=== PATIENT | male | born 1945 | race Caucasian/White ===

== ENCOUNTER 2018-04-03 08:25 | Inpatient (IN) | payer MEDICARE, BC ==
[~2018-04-03] VITALS: Ht 177.8 cm; Wt 81.8 kg
[~2018-04-03 08:25] MED LIST: ATOR10TA70 PO; BECL8.7H BOTHNARES; BUDE10.2 IH; GEMF600T3 PO; GLIM2TAB2 PO; LISI10TA4 PO; MESA1.2T PO; METF500T7 PO; NITR0.4T SL; TICA90TA PO
[2018-04-03 09:07] LABS: BASOPHILS % (AUTO) 0 % (0-1); EOSINOPHILS % (AUTO) 0.2 % (0-6); HEMATOCRIT 41.1 % (42.0-52.0); HEMOGLOBIN 13.6 g/dl (14.0-17.9); LYMPHOCYTES # (AUTO) 0.8 X10'3 (1.1-4.8); LYMPHOCYTES % (AUTO) 8.6 % (21-51); MEAN CORPUSCULAR HEMOGLOBIN 27.2 PG (27.0-31.0); MEAN CORPUSCULAR HGB CONC 33.2 % (33.0-36.5); MEAN PLATELET VOLUME 8.1 FL (7.4-10.4); MONOCYTES # (AUTO) 0.8 X10'3 (0-0.9); MONOCYTES % (AUTO) 9.3 % (2-12); NEUTROPHILS # (AUTO) 7.5 X10'3 (1.8-7.7); NEUTROPHILS % (AUTO) 81.9 % (42-75); PLATELET COUNT 383 X10'3 (140-440); RED BLOOD COUNT 5.02 X10'6 (4.70-6.10); RED CELL DISTRIBUTION WIDTH 18.3 % (11.5-14.5); WHITE BLOOD COUNT 9.1 X10'3 (4.5-11.0)
[2018-04-03 09:17] LABS: INR 1.1 INR; PARTIAL THROMBOPLASTIN TIME 33 SECONDS (22-32); PROTHROMBIN TIME 11.2 SECONDS (9.0-12.0)
[2018-04-03 09:22] LABS: ALANINE AMINOTRANSFERASE 24 U/L (12-78); ALBUMIN 2.7 G/DL (3.4-5.0); ALBUMIN/GLOBULIN RATIO 0.4 (1.1-1.5); ALKALINE PHOSPHATASE 105 IU/L (46-116); ANION GAP 14 (8-16); ASPARTATE AMINO TRANSFERASE 32 U/L (10-37); BILIRUBIN,TOTAL 0.7 MG/DL (0.1-1.0); BLOOD UREA NITROGEN 44 MG/DL (7-18); BUN/CREATININE RATIO 21.4 (5.4-32.0); CALCIUM 9.1 MG/DL (8.5-10.1); CHLORIDE 95 MMOL/L (99-107); CREATININE 2.06 MG/DL (0.60-1.10); GLUCOSE 179 MG/DL (70-104); POTASSIUM 3.9 MMOL/L (3.5-5.1); SODIUM 131 MMOL/L (135-145); TOTAL CARBON DIOXIDE 21.8 MMOL/L (24-32); TOTAL PROTEIN 8.9 G/DL (6.4-8.2); eGFR 32 ML/MIN
[2018-04-03 09:26] LABS: TOTAL CELLS COUNTED 100
[2018-04-03 09:27] LABS: ANISOCYTOSIS 2+; PLATELET ESTIMATE NORMAL; TOXIC GRANULATION 1+; TOXIC VACUOLATION 1+
[2018-04-03] MEDS ORDERED: aspirin 81mg tab.chew PO ONE (09:55)
[2018-04-03] MEDS ORDERED: normal saline 1000ML IV soln IVB ONE (10:10)
[2018-04-03] MEDS ORDERED: ASPI-1053 PO (10:28)
[2018-04-03] MEDS ORDERED: CHLO25TA2 PO (10:28)
[2018-04-03] MEDS ORDERED: LOSA25TA96 PO (10:28)
[2018-04-03] MEDS ORDERED: EMPA10TA PO (10:28)
[2018-04-03] MEDS ORDERED: METO-539 PO (10:28)
[2018-04-03] MEDS ORDERED: GABA-532 PO (10:28)
[2018-04-03] MEDS ORDERED: SITA25TA3 PO (10:28)
[2018-04-03] MEDS ORDERED: MESA10002 RC (10:28)
[2018-04-03] MEDS ORDERED: ADAL40PE SUBCUT (10:28)
[2018-04-03] MEDS ORDERED: MERC50TA2 PO (10:28)
[2018-04-03] MEDS ORDERED: OMEP20TA5 PO (10:28)
[2018-04-03] MEDS ORDERED: METF500T PO (10:28)
[2018-04-03] MEDS ORDERED: potassium Cl 20 mEq SR tablet PO PRN ×2 (10:45)
[2018-04-03] MEDS ORDERED: HYDROcodone/acetaminophen 5mg/325mg tablet PO PRN (10:45)
[2018-04-03] MEDS ORDERED: potassium Cl 40MEQ/NS 500ml 500 ML IV PRN ×2 (10:45)
[2018-04-03] MEDS ORDERED: magnesium hydroxide 30ml (MOM) UD suspension PO PRN (10:45)
[2018-04-03] MEDS ORDERED: morphine 4 MG/ML inj SYRINge IV PRN ×2 (10:45)
[2018-04-03] MEDS ORDERED: magnesium Cl slow-release 64mg tablet PO PRN (10:45)
[2018-04-03] MEDS ORDERED: mag hydrox/Alum hydrox/simeth 30ml oral suspension PO PRN (10:45)
[2018-04-03] MEDS ORDERED: acetaminophen 325mg tablet PO PRN ×2 (10:45)
[2018-04-03] MEDS ORDERED: magnesium/D5W IVPB 50 ML IV PRN (10:45)
[2018-04-03] MEDS ORDERED: magnesium 4gm in 100ml NS 100 ML IV PRN (10:45)
[2018-04-03] MEDS ORDERED: ondansetron/PF 4mg/2ml inj IV PRN (10:45)
[2018-04-03] MEDS ORDERED: HYDROcodone/acetaminophen 10/325mg tab PO PRN (10:45)
[2018-04-03] MEDS: normal saline 1000ml 1,000 ML IV SCH (11:05)
[2018-04-03] MEDS ORDERED: dextrose 50%-water 50ml dispensing syringe IV PRN ×2 (11:20)
[2018-04-03] MEDS ORDERED: dextrose ORAL solution 15 GM/59 ML bottle PO PRN (11:20)
[2018-04-03] MEDS ORDERED: MESSAGE TO PHARMACY PO ONE (11:20)
[2018-04-03] MEDS ORDERED: glucagon, human recombinant 1mg kit SUBCUT PRN (11:20)
[2018-04-03 13:06] LABS: HEMOGLOBIN A1C 6.5 % (4.5-6.2)
[2018-04-03 13:40] VITALS: BP 147/85
[2018-04-03 13:58] LABS: D-DIMER 5.84 MG/L FEU (0-0.50)
[2018-04-03] MEDS ORDERED: enoxaparin 40mg/0.4ml syringe SUBCUT ONE (14:50)
[2018-04-03] MEDS ORDERED: heparin 10,000 units/1 ML INJ IV ONE ×2 (17:10→17:15)
[2018-04-03] MEDS ORDERED: heparin 10,000 units/1 ML INJ IV PRN ×2 (17:10→17:15)
[2018-04-03] MEDS ORDERED: FLUSH ICATH ONE (17:30)
[2018-04-03] MEDS ORDERED: TPA CATHFLO ICATH ONE (17:30)
[2018-04-03] MEDS ORDERED: NORMAL SALINE ICATH ONE (17:30)
[2018-04-03] MEDS: albuterol 2.5 MG/3 ML nebule NEB SCH ×3 (17:43→23:35)
[2018-04-03] MEDS ORDERED: NORMAL SALINE IV ONE (18:00)
[2018-04-03] MEDS ORDERED: ALTEPLASE IV ONE (18:00)
[2018-04-03 19:00] VITALS: BP 147/85
[2018-04-03] MEDS: metoprolol tartrate 50mg tablet PO SCH (19:27)
[2018-04-03 20:00] VITALS: BP_SYST 116; BP_SYST 119; BP_DIAS 54; BP_DIAS 57
[2018-04-03] MEDS: methylPREDNISolone sod succ/PF 40mg inj. IV SCH (20:08)
[2018-04-03 21:00] VITALS: BP 119/54
[2018-04-03] MEDS: insulin glargine (Lantus) pen - multi-dose SQ SCH (21:00)
[2018-04-03] MEDS ORDERED: temazepam 15mg capsule PO PRN (21:00)
[2018-04-03 21:29] LABS: CHOL/HDL RATIO 12.7 (0.00-4.99); CHOLESTEROL 127 MG/DL (0-200); HDL CHOLESTEROL 10 MG/DL (35-60); LDL CHOLESTEROL 71 MG/DL (50-100); TRIGLYCERIDES 219 MG/DL (20-135)
[2018-04-03 22:00] VITALS: BP 111/70
[2018-04-03] MEDS: levoFLOXACIN-Levaquin 500mg/D5 100 ML IV SCH (22:59)
[2018-04-03 23:00] VITALS: BP 126/82
[2018-04-03] MEDS: ipratropium/albuterol 3ml nebule NEB SCH (23:35)
[2018-04-04] VITALS (23 sets, daily range): BP systolic 105–144; BP diastolic 51–79
[2018-04-04] MEDS: azithromycin/NS 500mg/250ml 250 ML IV SCH ×2 (00:13→07:40)
[2018-04-04] MEDS: normal saline 1000ml 1,000 ML IV SCH ×2 (01:37→12:11)
[2018-04-04] MEDS: ipratropium/albuterol 3ml nebule NEB SCH ×6 (03:43→23:00)
[2018-04-04] MEDS: albuterol 2.5 MG/3 ML nebule NEB SCH ×5 (03:44→23:58)
[2018-04-04 05:39] LABS: BASOPHILS % (AUTO) 0 % (0-1); EOSINOPHILS % (AUTO) 0.4 % (0-6); HEMOGLOBIN 12.6 g/dl (14.0-17.9); LYMPHOCYTES # (AUTO) 0.3 X10'3 (1.1-4.8); LYMPHOCYTES % (AUTO) 4.1 % (21-51); MEAN CORPUSCULAR HEMOGLOBIN 26.9 PG (27.0-31.0); MEAN CORPUSCULAR HGB CONC 32.3 % (33.0-36.5); MEAN CORPUSCULAR VOLUME 83.3 FL (78-98); MEAN PLATELET VOLUME 8.4 FL (7.4-10.4); MONOCYTES # (AUTO) 0.5 X10'3 (0-0.9); MONOCYTES % (AUTO) 7.4 % (2-12); NEUTROPHILS # (AUTO) 5.9 X10'3 (1.8-7.7); NEUTROPHILS % (AUTO) 88.1 % (42-75); PLATELET COUNT 340 X10'3 (140-440); RED BLOOD COUNT 4.69 X10'6 (4.70-6.10); RED CELL DISTRIBUTION WIDTH 18.5 % (11.5-14.5); WHITE BLOOD COUNT 6.7 X10'3 (4.5-11.0)
[2018-04-04 06:09] LABS: ALANINE AMINOTRANSFERASE 27 U/L (12-78); ALBUMIN 2.3 G/DL (3.4-5.0); ALBUMIN/GLOBULIN RATIO 0.4 (1.1-1.5); ALKALINE PHOSPHATASE 100 IU/L (46-116); ANION GAP 13 (8-16); ASPARTATE AMINO TRANSFERASE 33 U/L (10-37); BILIRUBIN,TOTAL 0.5 MG/DL (0.1-1.0); BLOOD UREA NITROGEN 36 MG/DL (7-18); CALCIUM 9.1 MG/DL (8.5-10.1); CHLORIDE 99 MMOL/L (99-107); CREATININE 1.44 MG/DL (0.60-1.10); GLUCOSE 197 MG/DL (70-104); MAGNESIUM 2.1 MG/DL (1.5-2.4); POTASSIUM 3.8 MMOL/L (3.5-5.1); SODIUM 136 MMOL/L (135-145); TOTAL CARBON DIOXIDE 23.6 MMOL/L (24-32); TOTAL PROTEIN 8.1 G/DL (6.4-8.2); eGFR 48 ML/MIN
[2018-04-04] MEDS: metoprolol tartrate 50mg tablet PO SCH ×2 (07:40→19:19)
[2018-04-04] MEDS: losartan 50mg tablet PO SCH (07:40)
[2018-04-04] MEDS: atorvastatin 10mg tablet PO SCH (07:40)
[2018-04-04] MEDS: methylPREDNISolone sod succ/PF 40mg inj. IV SCH ×2 (07:40→19:21)
[2018-04-04] MEDS: pantoprazole 40mg Tablet.DR PO SCH (07:40)
[2018-04-04] MEDS ORDERED: enoxaparin 80mg/0.8ml syringe SUBCUT SCH (08:00)
[2018-04-04] MEDS ORDERED: enoxaparin 40mg/0.4ml syringe SUBCUT SCH (08:00)
[2018-04-04] MEDS ORDERED: levoFLOXACIN 250mg tablet PO SCH (08:00)
[2018-04-04] MEDS: K and/or MAG REPLACEMENT MC SCH (08:00)
[2018-04-04] MEDS ORDERED: apixaban 5mg tablet PO SCH (08:10)
[2018-04-04] MEDS: levoFLOXACIN-Levaquin 500mg/D5 100 ML IV SCH (09:43)
[2018-04-04] MEDS: apixaban 5mg tablet PO SCH ×2 (10:53→19:21)
[2018-04-04] MEDS: guaiFENesin/DM oral syrup 5 ML CUP PO PRN ×3 (11:37→20:08)
[2018-04-04] MEDS: CefTRIAXone/D5W-Rocephin 1gm 50 ML IV SCH (12:12)
[2018-04-04] MEDS: insulin Lispro (HumaLOG) vial - multi-dose SQ SCH ×3 (13:53→21:58)
[2018-04-04] MEDS: lactobacillus rhamnosus 10,000 MMU CELLS/CAPSULE PO SCH (19:19)
[2018-04-04] MEDS: gabapentin 300mg capsule PO SCH (20:10)
[2018-04-04] MEDS: insulin glargine (Lantus) pen - multi-dose SQ SCH (22:00)
[2018-04-04] MEDS: benzonatate 100mg capsule PO PRN (23:15)
[2018-04-05] VITALS (18 sets, daily range): BP systolic 105–150; BP diastolic 51–97
[2018-04-05] MEDS: guaiFENesin/DM oral syrup 5 ML CUP PO PRN (01:09)
[2018-04-05] MEDS: normal saline 1000ml 1,000 ML IV SCH ×2 (01:24→15:15)
[2018-04-05] MEDS: ipratropium/albuterol 3ml nebule NEB SCH ×6 (02:45→23:31)
[2018-04-05] MEDS: codeine/proMETHazine 5ml UD syrup PO PRN ×3 (02:45→18:41)
[2018-04-05] MEDS: albuterol 2.5 MG/3 ML nebule NEB SCH ×2 (04:00→08:00)
[2018-04-05 05:54] LABS: BASOPHILS % (AUTO) 0 % (0-1); EOSINOPHILS % (AUTO) 0.3 % (0-6); HEMATOCRIT 37.6 % (42.0-52.0); HEMOGLOBIN 12.2 g/dl (14.0-17.9); LYMPHOCYTES # (AUTO) 0.4 X10'3 (1.1-4.8); LYMPHOCYTES % (AUTO) 4.9 % (21-51); MEAN CORPUSCULAR HEMOGLOBIN 27.2 PG (27.0-31.0); MEAN CORPUSCULAR HGB CONC 32.4 % (33.0-36.5); MEAN PLATELET VOLUME 8.6 FL (7.4-10.4); MONOCYTES # (AUTO) 0.4 X10'3 (0-0.9); MONOCYTES % (AUTO) 6.1 % (2-12); NEUTROPHILS # (AUTO) 6.3 X10'3 (1.8-7.7); NEUTROPHILS % (AUTO) 88.7 % (42-75); PLATELET COUNT 392 X10'3 (140-440); RED BLOOD COUNT 4.47 X10'6 (4.70-6.10); RED CELL DISTRIBUTION WIDTH 18.9 % (11.5-14.5); WHITE BLOOD COUNT 7.2 X10'3 (4.5-11.0)
[2018-04-05 06:13] LABS: ALANINE AMINOTRANSFERASE 43 U/L (12-78); ALBUMIN 2.2 G/DL (3.4-5.0); ALBUMIN/GLOBULIN RATIO 0.4 (1.1-1.5); ALKALINE PHOSPHATASE 100 IU/L (46-116); ANION GAP 9 (8-16); ASPARTATE AMINO TRANSFERASE 68 U/L (10-37); BILIRUBIN,TOTAL 0.3 MG/DL (0.1-1.0); BLOOD UREA NITROGEN 43 MG/DL (7-18); BUN/CREATININE RATIO 32.6 (5.4-32.0); CALCIUM 8.8 MG/DL (8.5-10.1); CHLORIDE 102 MMOL/L (99-107); CREATININE 1.32 MG/DL (0.60-1.10); GLUCOSE 219 MG/DL (70-104); MAGNESIUM 2.3 MG/DL (1.5-2.4); SODIUM 137 MMOL/L (135-145); TOTAL CARBON DIOXIDE 25.8 MMOL/L (24-32); TOTAL PROTEIN 7.7 G/DL (6.4-8.2); eGFR 53 ML/MIN
[2018-04-05 06:14] LABS: POTASSIUM 4.6 MMOL/L (3.5-5.1)
[2018-04-05] MEDS: CefTRIAXone/D5W-Rocephin 1gm 50 ML IV SCH (07:48)
[2018-04-05] MEDS: atorvastatin 10mg tablet PO SCH (07:50)
[2018-04-05] MEDS: lactobacillus rhamnosus 10,000 MMU CELLS/CAPSULE PO SCH ×2 (07:50→20:03)
[2018-04-05] MEDS: pantoprazole 40mg Tablet.DR PO SCH (07:51)
[2018-04-05] MEDS: gabapentin 300mg capsule PO SCH ×3 (07:51→20:03)
[2018-04-05] MEDS: metoprolol tartrate 50mg tablet PO SCH ×2 (07:51→20:04)
[2018-04-05] MEDS: apixaban 5mg tablet PO SCH ×2 (07:51→20:03)
[2018-04-05] MEDS: losartan 50mg tablet PO SCH (07:51)
[2018-04-05] MEDS: methylPREDNISolone sod succ/PF 40mg inj. IV SCH ×2 (07:51→20:03)
[2018-04-05] MEDS: K and/or MAG REPLACEMENT MC SCH (08:00)
[2018-04-05] MEDS: azithromycin/NS 500mg/250ml 250 ML IV SCH (08:47)
[2018-04-05] MEDS: insulin Lispro (HumaLOG) vial - multi-dose SQ SCH ×3 (08:50→18:44)
[2018-04-05] MEDS: benzonatate 100mg capsule PO PRN ×2 (10:34→20:03)
[2018-04-05] MEDS: insulin glargine (Lantus) pen - multi-dose SQ SCH (21:13)
[2018-04-05 22:34] LABS: CLARITY,URINE CLEAR (Clear); COLOR,URINE YELLOW (Yellow); GLUCOSE, URINE >=1000 mg/dl (Neg); KETONES,URINE NEGATIVE (Neg); LEUKOCYTE ESTERASE ,URINE NEGATIVE (Neg); NITRITES, URINE NEGATIVE (Neg); OCCULT BLOOD,URINE TRACE-INTACT (Neg); PH,URINE 5.5 (4.8-8.0); PROTEIN,URINE 30 mg/dl (Neg); UROBILINOGEN,URINE 0.2 E.U/dL (0.2-1.0)
[2018-04-05 22:44] LABS: UA COLLECTION TYPE CLN CATCH MIDSTREAM
[2018-04-05 23:02] LABS: BACTERIA,URINE NONE SEEN /HPF (Neg); MUCUS STRANDS NONE SEEN /LPF (Neg); RBC,URINE 0-2 /HPF (0-2); SQUAMOUS EPITHELIAL CELL,UR NONE SEEN /LPF (FEW); WBC,URINE NONE SEEN /HPF (0-4)
[2018-04-05 23:37] LABS: UA EOSINOPHILS NO EOS /HPF
[2018-04-06 03:00] VITALS: BP 146/68
[2018-04-06] MEDS: ipratropium/albuterol 3ml nebule NEB SCH ×5 (03:20→15:00)
[2018-04-06 06:00] VITALS: BP 144/67
[2018-04-06 06:15] LABS: BASOPHILS % (AUTO) 0 % (0-1); EOSINOPHILS % (AUTO) 0.4 % (0-6); HEMOGLOBIN 12.6 g/dl (14.0-17.9); LYMPHOCYTES # (AUTO) 0.7 X10'3 (1.1-4.8); MEAN CORPUSCULAR HEMOGLOBIN 27.2 PG (27.0-31.0); MEAN CORPUSCULAR HGB CONC 32.4 % (33.0-36.5); MONOCYTES # (AUTO) 0.7 X10'3 (0-0.9); MONOCYTES % (AUTO) 6.1 % (2-12); NEUTROPHILS # (AUTO) 9.2 X10'3 (1.8-7.7); NEUTROPHILS % (AUTO) 86.5 % (42-75); PLATELET COUNT 418 X10'3 (140-440); RED BLOOD COUNT 4.64 X10'6 (4.70-6.10); RED CELL DISTRIBUTION WIDTH 18.8 % (11.5-14.5); WHITE BLOOD COUNT 10.6 X10'3 (4.5-11.0)
[2018-04-06 06:35] LABS: ALANINE AMINOTRANSFERASE 69 U/L (12-78); ALBUMIN 2.3 G/DL (3.4-5.0); ALBUMIN/GLOBULIN RATIO 0.5 (1.1-1.5); ALKALINE PHOSPHATASE 117 IU/L (46-116); ANION GAP 9 (8-16); ASPARTATE AMINO TRANSFERASE 49 U/L (10-37); BILIRUBIN,TOTAL 0.3 MG/DL (0.1-1.0); BLOOD UREA NITROGEN 34 MG/DL (7-18); BUN/CREATININE RATIO 27.2 (5.4-32.0); CALCIUM 9.1 MG/DL (8.5-10.1); CHLORIDE 103 MMOL/L (99-107); CREATININE 1.25 MG/DL (0.60-1.10); GLUCOSE 203 MG/DL (70-104); POTASSIUM 4.3 MMOL/L (3.5-5.1); SODIUM 138 MMOL/L (135-145); TOTAL CARBON DIOXIDE 26.2 MMOL/L (24-32); TOTAL PROTEIN 7.4 G/DL (6.4-8.2); eGFR 56 ML/MIN
[2018-04-06] MEDS: pantoprazole 40mg Tablet.DR PO SCH (07:30)
[2018-04-06] MEDS: K and/or MAG REPLACEMENT MC SCH (08:00)
[2018-04-06] MEDS: insulin Lispro (HumaLOG) vial - multi-dose SQ SCH ×3 (08:21→20:02)
[2018-04-06] MEDS: gabapentin 300mg capsule PO SCH ×3 (08:22→22:05)
[2018-04-06] MEDS: lactobacillus rhamnosus 10,000 MMU CELLS/CAPSULE PO SCH ×2 (08:22→19:53)
[2018-04-06] MEDS: azithromycin/NS 500mg/250ml 250 ML IV SCH (08:22)
[2018-04-06] MEDS: metoprolol tartrate 50mg tablet PO SCH ×2 (08:23→19:53)
[2018-04-06] MEDS: losartan 50mg tablet PO SCH (08:23)
[2018-04-06] MEDS: methylPREDNISolone sod succ/PF 40mg inj. IV SCH ×2 (08:23→19:53)
[2018-04-06] MEDS: atorvastatin 10mg tablet PO SCH (08:23)
[2018-04-06] MEDS: apixaban 5mg tablet PO SCH ×2 (08:23→19:53)
[2018-04-06] MEDS: CefTRIAXone/D5W-Rocephin 1gm 50 ML IV SCH (08:31)
[2018-04-06] MEDS: normal saline 1000ml 1,000 ML IV SCH ×2 (08:33→19:41)
[2018-04-06 11:00] VITALS: BP 135/96
[2018-04-06] MEDS ORDERED: ipratropium/albuterol 3ml nebule NEB PRN (13:25)
[2018-04-06] MEDS ORDERED: ceftazidime 1000mg in D5W 50ml 50 ML IV SCH (14:40)
[2018-04-06 15:00] VITALS: BP 152/75
[2018-04-06] MEDS: guaiFENesin/DM oral syrup 5 ML CUP PO PRN (15:11)
[2018-04-06] MEDS: cefTAZidime inj. 1 GM in normal saline 100ml IV soln 100 ML IV SCH (16:18)
[2018-04-06 19:00] VITALS: BP_SYST 131; BP_SYST 156; BP_DIAS 56; BP_DIAS 76
[2018-04-06] MEDS: codeine/proMETHazine 5ml UD syrup PO PRN (22:08)
[2018-04-06] MEDS: insulin glargine (Lantus) pen - multi-dose SQ SCH (22:18)
[2018-04-06 23:00] VITALS: BP 131/56
[2018-04-07] MEDS: cefTAZidime inj. 1 GM in normal saline 100ml IV soln 100 ML IV SCH ×4 (00:02→23:04)
[2018-04-07] MEDS: ipratropium/albuterol 3ml nebule NEB SCH ×5 (02:53→20:44)
[2018-04-07 03:00] VITALS: BP 140/95
[2018-04-07 06:00] VITALS: BP 158/81
[2018-04-07 06:05] LABS: BASOPHILS % (AUTO) 0.2 % (0-1); EOSINOPHILS % (AUTO) 0.1 % (0-6); HEMATOCRIT 37.1 % (42.0-52.0); HEMOGLOBIN 12.1 g/dl (14.0-17.9); LYMPHOCYTES # (AUTO) 1.1 X10'3 (1.1-4.8); LYMPHOCYTES % (AUTO) 9.5 % (21-51); MEAN CORPUSCULAR HEMOGLOBIN 27.2 PG (27.0-31.0); MEAN CORPUSCULAR HGB CONC 32.6 % (33.0-36.5); MEAN CORPUSCULAR VOLUME 83.4 FL (78-98); MEAN PLATELET VOLUME 8.3 FL (7.4-10.4); MONOCYTES # (AUTO) 0.9 X10'3 (0-0.9); MONOCYTES % (AUTO) 7.6 % (2-12); NEUTROPHILS # (AUTO) 9.6 X10'3 (1.8-7.7); NEUTROPHILS % (AUTO) 82.6 % (42-75); PLATELET COUNT 406 X10'3 (140-440); RED BLOOD COUNT 4.45 X10'6 (4.70-6.10); RED CELL DISTRIBUTION WIDTH 18.5 % (11.5-14.5); WHITE BLOOD COUNT 11.6 X10'3 (4.5-11.0)
[2018-04-07 06:17] LABS: ALANINE AMINOTRANSFERASE 67 U/L (12-78); ALBUMIN 2.1 G/DL (3.4-5.0); ALBUMIN/GLOBULIN RATIO 0.5 (1.1-1.5); ALKALINE PHOSPHATASE 117 IU/L (46-116); ANION GAP 6 (8-16); ASPARTATE AMINO TRANSFERASE 41 U/L (10-37); BILIRUBIN,TOTAL 0.3 MG/DL (0.1-1.0); BLOOD UREA NITROGEN 31 MG/DL (7-18); BUN/CREATININE RATIO 30.4 (5.4-32.0); CALCIUM 8.5 MG/DL (8.5-10.1); CHLORIDE 106 MMOL/L (99-107); CREATININE 1.02 MG/DL (0.60-1.10); GLUCOSE 173 MG/DL (70-104); MAGNESIUM 1.8 MG/DL (1.5-2.4); POTASSIUM 4.2 MMOL/L (3.5-5.1); SODIUM 140 MMOL/L (135-145); TOTAL CARBON DIOXIDE 28.1 MMOL/L (24-32); TOTAL PROTEIN 6.6 G/DL (6.4-8.2); eGFR 71 ML/MIN
[2018-04-07 06:44] LABS: ANISOCYTOSIS 2+; LARGE PLATELETS FEW; PLATELET ESTIMATE NORMAL; POLYCHROMASIA 1+
[2018-04-07] MEDS: lactobacillus rhamnosus 10,000 MMU CELLS/CAPSULE PO SCH ×2 (07:41→19:42)
[2018-04-07] MEDS: apixaban 5mg tablet PO SCH ×2 (07:41→19:42)
[2018-04-07] MEDS: metoprolol tartrate 50mg tablet PO SCH ×2 (07:41→19:43)
[2018-04-07] MEDS: losartan 50mg tablet PO SCH (07:41)
[2018-04-07] MEDS: pantoprazole 40mg Tablet.DR PO SCH (07:41)
[2018-04-07] MEDS: methylPREDNISolone sod succ/PF 40mg inj. IV SCH (07:41)
[2018-04-07] MEDS: gabapentin 300mg capsule PO SCH ×3 (07:42→21:08)
[2018-04-07] MEDS: atorvastatin 10mg tablet PO SCH (07:42)
[2018-04-07] MEDS: K and/or MAG REPLACEMENT MC SCH (08:00)
[2018-04-07] MEDS: insulin Lispro (HumaLOG) vial - multi-dose SQ SCH ×4 (08:50→21:14)
[2018-04-07] MEDS: normal saline 1000ml 1,000 ML IV SCH (09:01)
[2018-04-07 11:00] VITALS: BP 146/72
[2018-04-07] MEDS: dextrose ORAL solution 15 GM/59 ML bottle PO PRN (12:19)
[2018-04-07 15:00] VITALS: BP 160/76
[2018-04-07 19:00] VITALS: BP 170/69
[2018-04-07] MEDS: benzonatate 100mg capsule PO PRN (19:42)
[2018-04-07] MEDS: insulin glargine (Lantus) pen - multi-dose SQ SCH (21:14)
[2018-04-07 23:00] VITALS: BP 156/75
[2018-04-08] MEDS: ipratropium/albuterol 3ml nebule NEB SCH ×2 (02:34→08:39)
[2018-04-08 03:00] VITALS: BP 150/71
[2018-04-08 05:59] LABS: BASOPHILS % (AUTO) 0.1 % (0-1); EOSINOPHILS # (AUTO) 0.1 X10'3 (0-0.9); EOSINOPHILS % (AUTO) 1.1 % (0-6); HEMOGLOBIN 12.4 g/dl (14.0-17.9); LYMPHOCYTES % (AUTO) 16.8 % (21-51); MEAN CORPUSCULAR HEMOGLOBIN 27.1 PG (27.0-31.0); MEAN CORPUSCULAR HGB CONC 32.7 % (33.0-36.5); MEAN CORPUSCULAR VOLUME 83.1 FL (78-98); MEAN PLATELET VOLUME 7.8 FL (7.4-10.4); MONOCYTES # (AUTO) 0.7 X10'3 (0-0.9); MONOCYTES % (AUTO) 5.7 % (2-12); NEUTROPHILS # (AUTO) 9.2 X10'3 (1.8-7.7); NEUTROPHILS % (AUTO) 76.3 % (42-75); PLATELET COUNT 427 X10'3 (140-440); RED BLOOD COUNT 4.57 X10'6 (4.70-6.10); RED CELL DISTRIBUTION WIDTH 18.7 % (11.5-14.5); WHITE BLOOD COUNT 12.1 X10'3 (4.5-11.0)
[2018-04-08 06:00] VITALS: BP 155/70
[2018-04-08 06:20] LABS: ALANINE AMINOTRANSFERASE 57 U/L (12-78); ALBUMIN 2.1 G/DL (3.4-5.0); ALBUMIN/GLOBULIN RATIO 0.5 (1.1-1.5); ALKALINE PHOSPHATASE 109 IU/L (46-116); ANION GAP 6 (8-16); ASPARTATE AMINO TRANSFERASE 29 U/L (10-37); BILIRUBIN,TOTAL 0.4 MG/DL (0.1-1.0); BLOOD UREA NITROGEN 24 MG/DL (7-18); BUN/CREATININE RATIO 21.2 (5.4-32.0); CALCIUM 8.8 MG/DL (8.5-10.1); CHLORIDE 104 MMOL/L (99-107); CREATININE 1.13 MG/DL (0.60-1.10); GLUCOSE 135 MG/DL (70-104); MAGNESIUM 1.6 MG/DL (1.5-2.4); POTASSIUM 3.7 MMOL/L (3.5-5.1); SODIUM 141 MMOL/L (135-145); TOTAL CARBON DIOXIDE 30.6 MMOL/L (24-32); TOTAL PROTEIN 6.4 G/DL (6.4-8.2); eGFR 63 ML/MIN
[2018-04-08] MEDS: lactobacillus rhamnosus 10,000 MMU CELLS/CAPSULE PO SCH (07:54)
[2018-04-08] MEDS: metoprolol tartrate 50mg tablet PO SCH (07:54)
[2018-04-08] MEDS: pantoprazole 40mg Tablet.DR PO SCH (07:54)
[2018-04-08] MEDS: apixaban 5mg tablet PO SCH (07:54)
[2018-04-08] MEDS: gabapentin 300mg capsule PO SCH ×2 (07:54→12:45)
[2018-04-08] MEDS: losartan 50mg tablet PO SCH (07:54)
[2018-04-08] MEDS: atorvastatin 10mg tablet PO SCH (07:54)
[2018-04-08] MEDS: cefTAZidime inj. 1 GM in normal saline 100ml IV soln 100 ML IV SCH (07:55)
[2018-04-08] MEDS ORDERED: predniSONE 20 mg tablet PO SCH (08:00)
[2018-04-08] MEDS: K and/or MAG REPLACEMENT MC SCH (08:00)
[2018-04-08] MEDS: insulin Lispro (HumaLOG) vial - multi-dose SQ SCH ×2 (09:09→13:05)
[2018-04-08 09:10] LABS: NEUTROPHILS % (MANUAL) 58 % (42-75); TOTAL CELLS COUNTED 100
[2018-04-08 09:11] LABS: ANISOCYTOSIS 2+; BANDS% (MANUAL) 2 % (0-10); EOSINOPHILS % (MANUAL) 2 % (0-6); LYMPHOCYTES % (MANUAL) 21 % (21-51); METAMYLEOCYTES% (MANUAL) 6 % (0-0); MONOCYTES % (MANUAL) 5 % (2-12); MYELOCYTES % (MANUAL) 4 % (0-0); NUCLEATED RED BLOOD CELLS 1 /100WBC (0-0); PLATELET ESTIMATE NORMAL; SMUDGE CELLS FEW
[2018-04-08 11:00] VITALS: BP 155/73
[2018-04-08] MEDS: dextrose ORAL solution 15 GM/59 ML bottle PO PRN (12:15)
[2018-04-08] MEDS ORDERED: CIPR-230 PO (13:27)
[2018-04-08] MEDS ORDERED: APIX5TAB3 PO (13:27)
[2018-04-08] MEDS ORDERED: PRED10TA PO (13:31)
== END 2018-04-08 15:20 | disposition home health service (06) | DRG 871 ==
LOC: ER 08:25 → ED HOLD 10:44 → EDBEDREQ 12:32 → PCU 3S 13:41 → ICU 2S 18:04 → PCU 3S 04-05 15:30
PROVIDERS: ADMIT Internal Medicine; ATTEND Internal Medicine Critical Care Medicine
PROC: 3E03317 Introduction of Other Thrombolytic into Peripheral Vein, Percutaneous Approach (ICD-10-PCS; principal; 2018-04-03)
PROC: CB221ZZ Tomographic (Tomo) Nuclear Medicine Imaging of Lungs and Bronchi using Technetium 99m (Tc-99m) (ICD-10-PCS; 2018-04-03)
DX: A41.9 Sepsis, unspecified organism (principal); J15.1 Pneumonia due to Pseudomonas; I21.4 Non-ST elevation (NSTEMI) myocardial infarction; I26.99 Other pulmonary embolism without acute cor pulmonale; I13.0 Hypertensive heart and chronic kidney disease with heart failure and stage 1 through stage 4 chronic kidney disease, or unspecified chronic kidney disease; I50.42 Chronic combined systolic (congestive) and diastolic (congestive) heart failure; N17.9 Acute kidney failure, unspecified; J44.0 Chronic obstructive pulmonary disease with (acute) lower respiratory infection; K51.90 Ulcerative colitis, unspecified, without complications; E11.22 Type 2 diabetes mellitus with diabetic chronic kidney disease; M54.2 Cervicalgia; E11.42 Type 2 diabetes mellitus with diabetic polyneuropathy; E78.00 Pure hypercholesterolemia, unspecified; E78.5 Hyperlipidemia, unspecified; R79.89 Other specified abnormal findings of blood chemistry; G89.29 Other chronic pain; I25.10 Atherosclerotic heart disease of native coronary artery without angina pectoris; K21.9 Gastro-esophageal reflux disease without esophagitis; N18.9 Chronic kidney disease, unspecified; Z79.01 Long term (current) use of anticoagulants; Z79.84 Long term (current) use of oral hypoglycemic drugs; Z79.899 Other long term (current) drug therapy; Z82.3 Family history of stroke; Z82.5 Family history of asthma and other chronic lower respiratory diseases; Z87.891 Personal history of nicotine dependence; Z95.5 Presence of coronary angioplasty implant and graft; Z99.81 Dependence on supplemental oxygen; Z88.0 Allergy status to penicillin; Z90.49 Acquired absence of other specified parts of digestive tract
CPT/HCPCS: 36415; 71045; 78582; 80053; 80061; 81001; 82570; 82948; 83036; 83605; 83735; 83880; 84300; 84484; 85025; 85379; 85610; 85730; 87040; 87070; 87077; 87186; 87207; 93005; 93306; 93970; 94640; 94760; 99285; A6213; A9539; A9540; J0456; J0696; J0713; J1815; J1956; J2270; J2920; J2997; J7030; J7040; J7512

== ENCOUNTER 2018-06-26 15:32 | Inpatient (IN) | payer MEDICARE, OTHER ==
[~2018-06-26] VITALS: Ht 177.8 cm; Wt 81.9 kg
[~2018-06-26 15:32] MED LIST changes: +ADAL40PE SUBCUT; +APIX5TAB3 PO; +ASPI-1053 PO; -BECL8.7H BOTHNARES; -BUDE10.2 IH; +CHLO25TA2 PO; +EMPA10TA PO; +GABA-532 PO; -GEMF600T3 PO; +GEMF600T4 PO; -LISI10TA4 PO; +LOSA25TA96 PO; +MERC50TA2 PO; -MESA1.2T PO; +MESA10002 RC; +METF500T PO; -METF500T7 PO; +METO-539 PO; -NITR0.4T SL; +OMEP20TA5 PO; +PRED10TA PO; +SITA25TA3 PO; -TICA90TA PO
[2018-06-26] MEDS ORDERED: aspirin 81mg tab.chew PO ONE (15:45)
[2018-06-26 16:00] LABS: BASOPHILS % (AUTO) 0.4 % (0-1); EOSINOPHILS # (AUTO) 0.3 X10'3 (0-0.9); EOSINOPHILS % (AUTO) 3.3 % (0-6); HEMOGLOBIN 14.8 g/dl (14.0-17.9); LYMPHOCYTES # (AUTO) 1.3 X10'3 (1.1-4.8); MEAN CORPUSCULAR HEMOGLOBIN 27.6 PG (27.0-31.0); MEAN CORPUSCULAR HGB CONC 32.9 % (33.0-36.5); MEAN CORPUSCULAR VOLUME 84.2 FL (78-98); MEAN PLATELET VOLUME 8.2 FL (7.4-10.4); MONOCYTES # (AUTO) 0.7 X10'3 (0-0.9); MONOCYTES % (AUTO) 7.3 % (2-12); NEUTROPHILS # (AUTO) 7.6 X10'3 (1.8-7.7); PLATELET COUNT 341 X10'3 (140-440); RED BLOOD COUNT 5.35 X10'6 (4.70-6.10); RED CELL DISTRIBUTION WIDTH 18.2 % (11.5-14.5)
[2018-06-26 16:14] LABS: ALANINE AMINOTRANSFERASE 13 U/L (12-78); ALBUMIN 3.6 G/DL (3.4-5.0); ALBUMIN/GLOBULIN RATIO 0.7 (1.1-1.5); ALKALINE PHOSPHATASE 195 IU/L (46-116); ANION GAP 10 (8-16); ASPARTATE AMINO TRANSFERASE 18 U/L (10-37); BILIRUBIN,TOTAL 0.8 MG/DL (0.1-1.0); BLOOD UREA NITROGEN 28 MG/DL (7-18); BUN/CREATININE RATIO 14.6 (5.4-32.0); CALCIUM 9.1 MG/DL (8.5-10.1); CHLORIDE 96 MMOL/L (99-107); CREATININE 1.92 MG/DL (0.60-1.10); GLUCOSE 96 MG/DL (70-104); POTASSIUM 4.5 MMOL/L (3.5-5.1); SODIUM 132 MMOL/L (135-145); TOTAL CARBON DIOXIDE 26.1 MMOL/L (24-32); TOTAL PROTEIN 8.6 G/DL (6.4-8.2); eGFR 34 ML/MIN
[2018-06-26 16:20] LABS: PARTIAL THROMBOPLASTIN TIME 32 SECONDS (22-32); PROTHROMBIN TIME 9.9 SECONDS (9.0-12.0)
[2018-06-26 16:21] LABS: MAGNESIUM 2.1 MG/DL (1.5-2.4)
[2018-06-26 18:10] LABS: D-DIMER 5.49 MG/L FEU (0-0.50)
[2018-06-26] MEDS ORDERED: enoxaparin 80mg/0.8ml syringe SUBCUT ONE (19:50)
[2018-06-26] MEDS ORDERED: acetaminophen 325mg tablet PO PRN ×2 (23:20)
[2018-06-26] MEDS ORDERED: ondansetron/PF 4mg/2ml inj IV PRN (23:20)
[2018-06-27 00:05] VITALS: BP 142/69
[2018-06-27 03:00] VITALS: BP 106/52
[2018-06-27 06:00] VITALS: BP 144/68
[2018-06-27 07:41] LABS: BASOPHILS % (AUTO) 0.2 % (0-1); EOSINOPHILS # (AUTO) 0.3 X10'3 (0-0.9); EOSINOPHILS % (AUTO) 3.3 % (0-6); HEMATOCRIT 43.9 % (42.0-52.0); HEMOGLOBIN 14.6 g/dl (14.0-17.9); LYMPHOCYTES # (AUTO) 1.3 X10'3 (1.1-4.8); LYMPHOCYTES % (AUTO) 13.8 % (21-51); MEAN CORPUSCULAR HEMOGLOBIN 27.9 PG (27.0-31.0); MEAN CORPUSCULAR HGB CONC 33.2 % (33.0-36.5); MEAN CORPUSCULAR VOLUME 83.9 FL (78-98); MEAN PLATELET VOLUME 8.4 FL (7.4-10.4); MONOCYTES # (AUTO) 0.7 X10'3 (0-0.9); MONOCYTES % (AUTO) 7.6 % (2-12); NEUTROPHILS # (AUTO) 6.8 X10'3 (1.8-7.7); NEUTROPHILS % (AUTO) 75.1 % (42-75); PLATELET COUNT 326 X10'3 (140-440); RED BLOOD COUNT 5.23 X10'6 (4.70-6.10); RED CELL DISTRIBUTION WIDTH 17.9 % (11.5-14.5)
[2018-06-27 07:57] LABS: ALANINE AMINOTRANSFERASE 17 U/L (12-78); ALBUMIN 3.4 G/DL (3.4-5.0); ALBUMIN/GLOBULIN RATIO 0.7 (1.1-1.5); ALKALINE PHOSPHATASE 197 IU/L (46-116); ANION GAP 9 (8-16); ASPARTATE AMINO TRANSFERASE 25 U/L (10-37); BILIRUBIN,TOTAL 0.6 MG/DL (0.1-1.0); BLOOD UREA NITROGEN 31 MG/DL (7-18); BUN/CREATININE RATIO 20.7 (5.4-32.0); CHLORIDE 99 MMOL/L (99-107); GLUCOSE 126 MG/DL (70-104); POTASSIUM 3.9 MMOL/L (3.5-5.1); SODIUM 134 MMOL/L (135-145); TOTAL CARBON DIOXIDE 25.6 MMOL/L (24-32); TOTAL PROTEIN 8.2 G/DL (6.4-8.2); eGFR 46 ML/MIN
[2018-06-27 07:59] LABS: HEMOGLOBIN A1C 6.3 % (4.5-6.2)
[2018-06-27 08:00] LABS: MAGNESIUM 2.3 MG/DL (1.5-2.4); PHOSPHORUS 3.9 MG/DL (2.3-4.5)
[2018-06-27] MEDS ORDERED: glimepiride 1 MG tablet PO SCH (08:00)
[2018-06-27] MEDS ORDERED: chlorthalidone 25mg tablet PO SCH (08:00)
[2018-06-27] MEDS ORDERED: atorvastatin 10mg tablet PO SCH (08:00)
[2018-06-27] MEDS ORDERED: metoprolol succinate 25mg (24-HOUR) SR. Tablet PO SCH (08:00)
[2018-06-27] MEDS ORDERED: enoxaparin 80mg/0.8ml syringe SUBCUT SCH (08:00)
[2018-06-27] MEDS ORDERED: gemfibrozil 600mg tablet PO SCH (08:00)
[2018-06-27] MEDS ORDERED: aspirin 81mg tab.chew PO SCH (08:00)
[2018-06-27] MEDS ORDERED: mesalamine 1000mg rectal suppository RC SCH (08:00)
[2018-06-27] MEDS ORDERED: Empagliflozin (Jardiance) 25 MG TAB PO SCH ×2 (08:00)
[2018-06-27] MEDS ORDERED: pantoprazole 40mg Tablet.DR PO SCH (08:00)
[2018-06-27] MEDS ORDERED: losartan 25mg tablet PO SCH (08:00)
[2018-06-27] MEDS: metFORMIN 500mg tablet PO SCH ×3 (08:39→17:50)
[2018-06-27] MEDS: gabapentin 300mg capsule PO SCH ×2 (08:39→13:00)
[2018-06-27 11:00] VITALS: BP 121/74
[2018-06-27 15:00] VITALS: BP 130/71
[2018-06-27] MEDS ORDERED: LORazepam 0.5 MG tablet PO PRN (16:15)
[2018-06-27] MEDS ORDERED: apixaban 5mg tablet PO ONE (16:44)
[2018-06-27] MEDS ORDERED: APIX5TAB3 PO (17:14)
[2018-06-27] MEDS ORDERED: apixaban 5mg tablet PO SCH (20:00)
[2018-07-08] MEDS ORDERED: ADALIMUMAB 40 MG/0.8 ML SUBCUT SCH (08:00)
== END 2018-06-27 19:34 | disposition left against medical advice (07) | DRG 683 ==
LOC: ER 15:33 → PCU 3S 23:16
PROVIDERS: ATTEND Internal Medicine Critical Care Medicine
PROC: CB221ZZ Tomographic (Tomo) Nuclear Medicine Imaging of Lungs and Bronchi using Technetium 99m (Tc-99m) (ICD-10-PCS; principal; 2018-06-26)
DX: N17.9 Acute kidney failure, unspecified (principal); I13.0 Hypertensive heart and chronic kidney disease with heart failure and stage 1 through stage 4 chronic kidney disease, or unspecified chronic kidney disease; I50.42 Chronic combined systolic (congestive) and diastolic (congestive) heart failure; E11.22 Type 2 diabetes mellitus with diabetic chronic kidney disease; E11.42 Type 2 diabetes mellitus with diabetic polyneuropathy; E78.00 Pure hypercholesterolemia, unspecified; I25.10 Atherosclerotic heart disease of native coronary artery without angina pectoris; J43.9 Emphysema, unspecified; Z53.21 Procedure and treatment not carried out due to patient leaving prior to being seen by health care provider; M54.9 Dorsalgia, unspecified; N18.9 Chronic kidney disease, unspecified; R79.1 Abnormal coagulation profile; Z90.49 Acquired absence of other specified parts of digestive tract; Z79.01 Long term (current) use of anticoagulants; Z79.84 Long term (current) use of oral hypoglycemic drugs; Z79.899 Other long term (current) drug therapy; Z88.0 Allergy status to penicillin; Z86.711 Personal history of pulmonary embolism
CPT/HCPCS: 36415; 71045; 78582; 80053; 82948; 83036; 83735; 83880; 84100; 84484; 85025; 85379; 85610; 85730; 87070; 93005; 93308; 93970; 96372; 99285; A9539; A9540; J1650; J7030

== ENCOUNTER 2018-08-18 23:48 | Inpatient (IN) | payer MEDICARE, BC ==
[~2018-08-18] VITALS: Ht 177.8 cm; Wt 85.1 kg
[~2018-08-18 23:48] MED LIST changes: -PRED10TA PO
[2018-08-19] VITALS (13 sets, daily range): BP systolic 74–131; BP diastolic 55–89
[2018-08-19] MEDS ORDERED: normal saline 1000ML IV soln IVB ONE (00:05)
[2018-08-19] MEDS ORDERED: iohexol 350MG/ML 100ml bottle IV ONE (00:16)
[2018-08-19] MEDS ORDERED: enoxaparin 100mg/ml syringe SUBCUT ONE (00:20)
[2018-08-19] MEDS: MESSAGE TO NURSING PO SCH (00:30)
[2018-08-19 00:35] LABS: BASOPHILS # (AUTO) 0.1 X10'3 (0-0.2); BASOPHILS % (AUTO) 0.6 % (0-1); EOSINOPHILS # (AUTO) 0.2 X10'3 (0-0.9); EOSINOPHILS % (AUTO) 2.4 % (0-6); HEMATOCRIT 44.9 % (42.0-52.0); HEMOGLOBIN 14.2 g/dl (14.0-17.9); LYMPHOCYTES # (AUTO) 1.8 X10'3 (1.1-4.8); LYMPHOCYTES % (AUTO) 19.9 % (21-51); MEAN CORPUSCULAR HEMOGLOBIN 26.3 PG (27.0-31.0); MEAN CORPUSCULAR HGB CONC 31.6 % (33.0-36.5); MEAN CORPUSCULAR VOLUME 83.1 FL (78-98); MEAN PLATELET VOLUME 8.9 FL (7.4-10.4); MONOCYTES # (AUTO) 0.9 X10'3 (0-0.9); MONOCYTES % (AUTO) 10.2 % (2-12); NEUTROPHILS # (AUTO) 6.2 X10'3 (1.8-7.7); NEUTROPHILS % (AUTO) 66.9 % (42-75); PLATELET COUNT 191 X10'3 (140-440); RED CELL DISTRIBUTION WIDTH 17.4 % (11.5-14.5); WHITE BLOOD COUNT 9.3 X10'3 (4.5-11.0)
[2018-08-19 00:43] LABS: ALANINE AMINOTRANSFERASE 13 U/L (12-78); ALBUMIN 3.2 G/DL (3.4-5.0); ALBUMIN/GLOBULIN RATIO 0.7 (1.1-1.5); ALKALINE PHOSPHATASE 260 IU/L (46-116); ANION GAP 10 (8-16); ASPARTATE AMINO TRANSFERASE 34 U/L (10-37); BILIRUBIN,TOTAL 0.6 MG/DL (0.1-1.0); BLOOD UREA NITROGEN 33 MG/DL (7-18); BUN/CREATININE RATIO 17.5 (5.4-32.0); CALCIUM 8.6 MG/DL (8.5-10.1); CHLORIDE 101 MMOL/L (99-107); CREATININE 1.89 MG/DL (0.60-1.10); GLUCOSE 183 MG/DL (70-104); POTASSIUM 4.1 MMOL/L (3.5-5.1); SODIUM 135 MMOL/L (135-145); TOTAL PROTEIN 7.7 G/DL (6.4-8.2); eGFR 35 ML/MIN
[2018-08-19 01:00] LABS: D-DIMER 16.27 MG/L FEU (0-0.50); INR 1.1 INR; PARTIAL THROMBOPLASTIN TIME 32 SECONDS (22-32); PROTHROMBIN TIME 10.8 SECONDS (9.0-12.0)
[2018-08-19] MEDS ORDERED: NITR0.4T51 SL (01:24)
[2018-08-19] MEDS ORDERED: TIOT4MIS3 INH (01:24)
[2018-08-19] MEDS ORDERED: nitroGLYCERIN 0.4mg SUBLingual tab SL PRN (01:35)
[2018-08-19] MEDS ORDERED: normal saline 1000ml 1,000 ML IV SCH (01:41)
[2018-08-19] MEDS ORDERED: acetaminophen 325mg tablet PO PRN ×2 (01:45)
[2018-08-19] MEDS ORDERED: magnesium hydroxide 30ml (MOM) UD suspension PO PRN (01:45)
[2018-08-19] MEDS ORDERED: ondansetron/PF 4mg/2ml inj IV PRN (01:45)
[2018-08-19] MEDS ORDERED: diphenhydrAMINE 50 mg/ml inj IV PRN (01:45)
[2018-08-19] MEDS ORDERED: acetaminophen 650mg rectal suppository RC PRN (01:45)
[2018-08-19] MEDS ORDERED: HYDROcodone/acetaminophen 5mg/325mg tablet PO PRN (01:45)
[2018-08-19] MEDS ORDERED: bisacodyl 10mg suppository rectal RC PRN (01:45)
[2018-08-19] MEDS ORDERED: mag hydrox/Alum hydrox/simeth 30ml oral suspension PO PRN (01:45)
[2018-08-19] MEDS ORDERED: metoclopramide 5 mg/ml inj IV PRN (01:45)
[2018-08-19] MEDS ORDERED: morphine 2 MG/ML inj. syringe IV PRN (01:45)
[2018-08-19] MEDS ORDERED: glucagon, human recombinant 1mg kit SUBCUT PRN (01:50)
[2018-08-19] MEDS ORDERED: dextrose ORAL solution 15 GM/59 ML bottle PO PRN ×2 (01:50)
[2018-08-19] MEDS ORDERED: dextrose 50%-water 50ml dispensing syringe IV PRN (01:50)
[2018-08-19] MEDS ORDERED: MESSAGE TO PHARMACY PO ONE (01:50)
[2018-08-19] MEDS ORDERED: normal saline 1000ml 1,000 ML IVB ONE (02:03)
[2018-08-19] MEDS ORDERED: levoFLOXACIN-Levaquin 500mg/D5 100 ML IV ONE (02:05)
[2018-08-19 02:26] LABS: MAGNESIUM 2.1 MG/DL (1.5-2.4); PHOSPHORUS 3.6 MG/DL (2.3-4.5)
[2018-08-19] MEDS: normal saline 1000ml 1,000 ML IV SCH ×2 (04:06→14:12)
[2018-08-19 04:13] LABS: CLARITY,URINE CLEAR (Clear); COLOR,URINE YELLOW (Yellow); GLUCOSE, URINE >=1000 mg/dl (Neg); KETONES,URINE NEGATIVE (Neg); LEUKOCYTE ESTERASE ,URINE NEGATIVE (Neg); NITRITES, URINE NEGATIVE (Neg); OCCULT BLOOD,URINE TRACE-INTACT (Neg); PH,URINE 5.5 (4.8-8.0); PROTEIN,URINE 30 mg/dl (Neg); UROBILINOGEN,URINE 0.2 E.U/dL (0.2-1.0)
[2018-08-19 04:14] LABS: UA COLLECTION TYPE CLN CATCH MIDSTREAM
[2018-08-19 04:19] LABS: WBC,URINE 0-4 /HPF (0-4)
[2018-08-19 04:20] LABS: BACTERIA,URINE FEW /HPF (Neg); SQUAMOUS EPITHELIAL CELL,UR FEW /LPF (FEW)
[2018-08-19] MEDS ORDERED: metoprolol succinate 25mg (24-HOUR) SR. Tablet PO SCH (08:00)
[2018-08-19] MEDS ORDERED: losartan 25mg tablet PO SCH (08:00)
[2018-08-19] MEDS: docusate sod 100mg capsule PO SCH ×2 (08:00→20:00)
[2018-08-19] MEDS: methylPREDNISolone sod succ 125mg/2ml vial IV SCH ×2 (08:14→20:46)
[2018-08-19] MEDS: gabapentin 300mg capsule PO SCH ×3 (08:17→20:46)
[2018-08-19] MEDS: pantoprazole 40mg Tablet.DR PO SCH (08:18)
[2018-08-19] MEDS: atorvastatin 10mg tablet PO SCH (08:18)
[2018-08-19] MEDS: aspirin 81mg tab.chew PO SCH (08:19)
[2018-08-19] MEDS ORDERED: HYDROmorphone inj. 0.5 MG/0.5 ML DISP.SYRIN IV PRN (09:45)
[2018-08-19] MEDS ORDERED: enoxaparin 50mg/0.5ml (from 3ml vial) syringe SUBCUT SCH (10:00)
[2018-08-19] MEDS ORDERED: HUMIRA 40 MG/0.8 ML SUBCUT SCH ×2 (10:00)
[2018-08-19] MEDS ORDERED: HYDROmorphone 1 mg/ml syringe ONE (10:41)
[2018-08-19] MEDS: gemfibrozil 600mg tablet PO SCH (11:10)
[2018-08-19] MEDS ORDERED: HYDROmorphone 1 mg/ml syringe IV PRN (11:20)
[2018-08-19] MEDS ORDERED: enoxaparin 30mg/0.3ml syringe SUBCUT SCH (12:30)
[2018-08-19] MEDS ORDERED: enoxaparin 60mg/0.6ml syringe SUBCUT SCH (12:30)
[2018-08-19 13:28] LABS: BASOPHILS % (AUTO) 0.2 % (0-1); EOSINOPHILS % (AUTO) 0.1 % (0-6); HEMATOCRIT 43.9 % (42.0-52.0); LYMPHOCYTES # (AUTO) 0.6 X10'3 (1.1-4.8); LYMPHOCYTES % (AUTO) 5.9 % (21-51); MEAN CORPUSCULAR HEMOGLOBIN 26.3 PG (27.0-31.0); MEAN CORPUSCULAR HGB CONC 31.8 % (33.0-36.5); MEAN CORPUSCULAR VOLUME 82.8 FL (78-98); MEAN PLATELET VOLUME 9.1 FL (7.4-10.4); MONOCYTES # (AUTO) 0.1 X10'3 (0-0.9); MONOCYTES % (AUTO) 1.1 % (2-12); NEUTROPHILS % (AUTO) 92.7 % (42-75); PLATELET COUNT 176 X10'3 (140-440); RED BLOOD COUNT 5.31 X10'6 (4.70-6.10); RED CELL DISTRIBUTION WIDTH 18.5 % (11.5-14.5); WHITE BLOOD COUNT 10.8 X10'3 (4.5-11.0)
[2018-08-19 13:40] LABS: ALANINE AMINOTRANSFERASE 16 U/L (12-78); ALBUMIN 3.2 G/DL (3.4-5.0); ALBUMIN/GLOBULIN RATIO 0.7 (1.1-1.5); ALKALINE PHOSPHATASE 257 IU/L (46-116); ANION GAP 14 (8-16); ASPARTATE AMINO TRANSFERASE 55 U/L (10-37); BLOOD UREA NITROGEN 31 MG/DL (7-18); BUN/CREATININE RATIO 17.2 (5.4-32.0); CALCIUM 8.9 MG/DL (8.5-10.1); CHLORIDE 98 MMOL/L (99-107); GLUCOSE 295 MG/DL (70-104); POTASSIUM 4.7 MMOL/L (3.5-5.1); SODIUM 132 MMOL/L (135-145); TOTAL PROTEIN 7.7 G/DL (6.4-8.2); eGFR 37 ML/MIN
[2018-08-19] MEDS: HYDROcodone/acetaminophen 10/325mg tab PO PRN ×2 (17:39→22:27)
[2018-08-19] MEDS ORDERED: temazepam 15mg capsule PO PRN ×2 (20:00→21:00)
[2018-08-20] VITALS (37 sets, daily range): BP systolic 99–157; BP diastolic 69–99
[2018-08-20] MEDS: MESSAGE TO NURSING PO SCH (00:30)
[2018-08-20] MEDS: normal saline 1000ml 1,000 ML IV SCH (03:18)
[2018-08-20 05:14] LABS: BASOPHILS % (AUTO) 0.1 % (0-1); EOSINOPHILS % (AUTO) 0 % (0-6); HEMATOCRIT 42.5 % (42.0-52.0); HEMOGLOBIN 13.7 g/dl (14.0-17.9); LYMPHOCYTES # (AUTO) 0.4 X10'3 (1.1-4.8); LYMPHOCYTES % (AUTO) 6.3 % (21-51); MEAN CORPUSCULAR HEMOGLOBIN 26.5 PG (27.0-31.0); MEAN CORPUSCULAR HGB CONC 32.1 % (33.0-36.5); MEAN CORPUSCULAR VOLUME 82.4 FL (78-98); MEAN PLATELET VOLUME 8.7 FL (7.4-10.4); MONOCYTES # (AUTO) 0.3 X10'3 (0-0.9); MONOCYTES % (AUTO) 4.1 % (2-12); NEUTROPHILS # (AUTO) 6.3 X10'3 (1.8-7.7); NEUTROPHILS % (AUTO) 89.5 % (42-75); PLATELET COUNT 104 X10'3 (140-440); RED BLOOD COUNT 5.16 X10'6 (4.70-6.10); RED CELL DISTRIBUTION WIDTH 18.1 % (11.5-14.5); WHITE BLOOD COUNT 7.1 X10'3 (4.5-11.0)
[2018-08-20 06:12] LABS: ALANINE AMINOTRANSFERASE 39 U/L (12-78); ALBUMIN 3.2 G/DL (3.4-5.0); ALBUMIN/GLOBULIN RATIO 0.8 (1.1-1.5); ALKALINE PHOSPHATASE 292 IU/L (46-116); ANION GAP 15 (8-16); ASPARTATE AMINO TRANSFERASE 87 U/L (10-37); BLOOD UREA NITROGEN 36 MG/DL (7-18); BUN/CREATININE RATIO 23.4 (5.4-32.0); CHLORIDE 100 MMOL/L (99-107); CHOLESTEROL 179 MG/DL (0-200); CREATININE 1.54 MG/DL (0.60-1.10); GLUCOSE 184 MG/DL (70-104); HDL CHOLESTEROL 36 MG/DL (35-60); LDL CHOLESTEROL 106 MG/DL (50-100); POTASSIUM 4.7 MMOL/L (3.5-5.1); SODIUM 134 MMOL/L (135-145); TOTAL CARBON DIOXIDE 19.5 MMOL/L (24-32); TOTAL PROTEIN 7.4 G/DL (6.4-8.2); TRIGLYCERIDES 210 MG/DL (20-135); eGFR 44 ML/MIN
[2018-08-20 06:41] LABS: CALCIUM 8.9 MG/DL (8.5-10.1)
[2018-08-20] MEDS: pantoprazole 40mg Tablet.DR PO SCH (06:58)
[2018-08-20] MEDS: aspirin 81mg tab.chew PO SCH (08:25)
[2018-08-20] MEDS: gabapentin 300mg capsule PO SCH ×3 (08:25→21:06)
[2018-08-20] MEDS: carVEDilol 3.125mg tablet PO SCH ×2 (08:25→21:06)
[2018-08-20] MEDS: methylPREDNISolone sod succ 125mg/2ml vial IV SCH ×2 (08:25→21:06)
[2018-08-20] MEDS: docusate sod 100mg capsule PO SCH ×2 (08:25→21:06)
[2018-08-20] MEDS: atorvastatin 10mg tablet PO SCH (08:25)
[2018-08-20] MEDS: HYDROcodone/acetaminophen 10/325mg tab PO PRN ×2 (08:43→21:33)
[2018-08-20] MEDS: gemfibrozil 600mg tablet PO SCH (10:33)
[2018-08-20] MEDS ORDERED: dextrose 50%-water 50ml dispensing syringe IV PRN ×2 (20:25)
[2018-08-20] MEDS ORDERED: insulin Lispro (HumaLOG) vial - multi-dose SQ SCH (20:25)
[2018-08-20] MEDS ORDERED: dextrose ORAL solution 15 GM/59 ML bottle PO PRN ×2 (20:25)
[2018-08-20] MEDS ORDERED: glucagon, human recombinant 1mg kit SUBCUT PRN (20:25)
[2018-08-20] MEDS: insulin glargine (Lantus) pen - multi-dose SQ SCH (21:00)
[2018-08-20] MEDS ORDERED: losartan 25mg tablet PO SCH (21:00)
[2018-08-20] MEDS: enoxaparin 80mg/0.8ml syringe SUBCUT SCH (21:06)
[2018-08-20] MEDS: diphenhydrAMINE 25mg capsule PO PRN (21:33)
[2018-08-21] VITALS (24 sets, daily range): BP systolic 82–155; BP diastolic 66–97
[2018-08-21] MEDS: diphenhydrAMINE 25mg capsule PO PRN ×2 (04:04→22:45)
[2018-08-21] MEDS: HYDROcodone/acetaminophen 10/325mg tab PO PRN ×2 (04:04→14:04)
[2018-08-21 05:46] LABS: ALANINE AMINOTRANSFERASE 36 U/L (12-78); ALBUMIN 3.4 G/DL (3.4-5.0); ALBUMIN/GLOBULIN RATIO 0.9 (1.1-1.5); ALKALINE PHOSPHATASE 272 IU/L (46-116); ANION GAP 10 (8-16); ASPARTATE AMINO TRANSFERASE 36 U/L (10-37); BILIRUBIN,TOTAL 0.7 MG/DL (0.1-1.0); BLOOD UREA NITROGEN 52 MG/DL (7-18); BUN/CREATININE RATIO 32.5 (5.4-32.0); CALCIUM 8.6 MG/DL (8.5-10.1); CHLORIDE 101 MMOL/L (99-107); GLUCOSE 226 MG/DL (70-104); POTASSIUM 4.7 MMOL/L (3.5-5.1); SODIUM 135 MMOL/L (135-145); TOTAL CARBON DIOXIDE 23.6 MMOL/L (24-32); TOTAL PROTEIN 7.4 G/DL (6.4-8.2); eGFR 42 ML/MIN
[2018-08-21 05:56] LABS: BASOPHILS % (AUTO) 0 % (0-1); EOSINOPHILS # (AUTO) 0.1 X10'3 (0-0.9); EOSINOPHILS % (AUTO) 0.9 % (0-6); HEMATOCRIT 42.1 % (42.0-52.0); HEMOGLOBIN 13.7 g/dl (14.0-17.9); LYMPHOCYTES # (AUTO) 0.4 X10'3 (1.1-4.8); LYMPHOCYTES % (AUTO) 5.2 % (21-51); MEAN CORPUSCULAR HGB CONC 32.6 % (33.0-36.5); MEAN CORPUSCULAR VOLUME 82.7 FL (78-98); MEAN PLATELET VOLUME 11.9 FL (7.4-10.4); MONOCYTES # (AUTO) 0.3 X10'3 (0-0.9); MONOCYTES % (AUTO) 3.7 % (2-12); NEUTROPHILS # (AUTO) 7.4 X10'3 (1.8-7.7); NEUTROPHILS % (AUTO) 90.2 % (42-75); PLATELET COUNT 96 X10'3 (140-440); RED BLOOD COUNT 5.09 X10'6 (4.70-6.10); RED CELL DISTRIBUTION WIDTH 18.6 % (11.5-14.5); WHITE BLOOD COUNT 8.2 X10'3 (4.5-11.0)
[2018-08-21 06:34] LABS: ANISOCYTOSIS 2+; LARGE PLATELETS FEW; PLATELET ESTIMATE DECREASED; POLYCHROMASIA 1+
[2018-08-21] MEDS: enoxaparin 80mg/0.8ml syringe SUBCUT SCH (08:00)
[2018-08-21 08:17] LABS: MAGNESIUM 2.3 MG/DL (1.5-2.4)
[2018-08-21] MEDS ORDERED: iohexol 350MG/ML 100ml bottle IV ONE (08:40)
[2018-08-21] MEDS ORDERED: LIDOcaine 1% 30ml preserv. free vial ONE (08:40)
[2018-08-21] MEDS ORDERED: midazolam 2 mg/2 ml injection ONE (08:59)
[2018-08-21] MEDS ORDERED: fentaNYL/PF 50MCG/1 ML 2ML syringe ONE (09:00)
[2018-08-21] MEDS ORDERED: proCHLORperazine 10 MG/2 ml inj IV PRN (11:45)
[2018-08-21] MEDS: pantoprazole 40mg Tablet.DR PO SCH (11:56)
[2018-08-21] MEDS: aspirin 81mg tab.chew PO SCH (11:56)
[2018-08-21] MEDS: atorvastatin 10mg tablet PO SCH (11:56)
[2018-08-21] MEDS: docusate sod 100mg capsule PO SCH ×2 (11:56→19:20)
[2018-08-21] MEDS: gabapentin 300mg capsule PO SCH ×3 (11:57→20:42)
[2018-08-21] MEDS: carVEDilol 3.125mg tablet PO SCH ×2 (11:57→19:20)
[2018-08-21] MEDS: gemfibrozil 600mg tablet PO SCH (11:57)
[2018-08-21] MEDS: methylPREDNISolone sod succ 125mg/2ml vial IV SCH ×2 (11:58→19:20)
[2018-08-21] MEDS: insulin Lispro (HumaLOG) vial - multi-dose SQ SCH ×3 (14:02→21:50)
[2018-08-21] MEDS: insulin glargine (Lantus) pen - multi-dose SQ SCH (21:49)
[2018-08-22] VITALS (25 sets, daily range): BP systolic 111–161; BP diastolic 63–95
[2018-08-22 05:22] LABS: BASOPHILS % (AUTO) 0 % (0-1); EOSINOPHILS # (AUTO) 0.1 X10'3 (0-0.9); EOSINOPHILS % (AUTO) 0.7 % (0-6); HEMATOCRIT 42.1 % (42.0-52.0); HEMOGLOBIN 13.4 g/dl (14.0-17.9); LYMPHOCYTES # (AUTO) 0.5 X10'3 (1.1-4.8); LYMPHOCYTES % (AUTO) 6.2 % (21-51); MEAN CORPUSCULAR HEMOGLOBIN 26.5 PG (27.0-31.0); MEAN CORPUSCULAR HGB CONC 31.7 % (33.0-36.5); MEAN CORPUSCULAR VOLUME 83.5 FL (78-98); MEAN PLATELET VOLUME 10.1 FL (7.4-10.4); MONOCYTES # (AUTO) 0.3 X10'3 (0-0.9); MONOCYTES % (AUTO) 3.7 % (2-12); NEUTROPHILS # (AUTO) 7.3 X10'3 (1.8-7.7); NEUTROPHILS % (AUTO) 89.4 % (42-75); PLATELET COUNT 93 X10'3 (140-440); RED BLOOD COUNT 5.05 X10'6 (4.70-6.10); RED CELL DISTRIBUTION WIDTH 18.4 % (11.5-14.5); WHITE BLOOD COUNT 8.2 X10'3 (4.5-11.0)
[2018-08-22 05:38] LABS: ALANINE AMINOTRANSFERASE 30 U/L (12-78); ALBUMIN 3.3 G/DL (3.4-5.0); ALBUMIN/GLOBULIN RATIO 0.8 (1.1-1.5); ALKALINE PHOSPHATASE 258 IU/L (46-116); ANION GAP 12 (8-16); ASPARTATE AMINO TRANSFERASE 29 U/L (10-37); BILIRUBIN,TOTAL 0.7 MG/DL (0.1-1.0); BLOOD UREA NITROGEN 46 MG/DL (7-18); BUN/CREATININE RATIO 33.6 (5.4-32.0); CALCIUM 8.4 MG/DL (8.5-10.1); CHLORIDE 101 MMOL/L (99-107); CHOL/HDL RATIO 6.2 (0.00-4.99); CHOLESTEROL 191 MG/DL (0-200); CREATININE 1.37 MG/DL (0.60-1.10); GLUCOSE 180 MG/DL (70-104); HDL CHOLESTEROL 31 MG/DL (35-60); LDL CHOLESTEROL 112 MG/DL (50-100); POTASSIUM 4.5 MMOL/L (3.5-5.1); SODIUM 137 MMOL/L (135-145); TOTAL CARBON DIOXIDE 24.5 MMOL/L (24-32); TOTAL PROTEIN 7.2 G/DL (6.4-8.2); TRIGLYCERIDES 315 MG/DL (20-135); eGFR 51 ML/MIN
[2018-08-22 06:32] LABS: LARGE PLATELETS FEW; PLATELET ESTIMATE DECREASED
[2018-08-22] MEDS: gemfibrozil 600mg tablet PO SCH (07:35)
[2018-08-22] MEDS: carVEDilol 3.125mg tablet PO SCH ×2 (07:35→20:09)
[2018-08-22] MEDS: gabapentin 300mg capsule PO SCH ×3 (07:35→20:09)
[2018-08-22] MEDS: pantoprazole 40mg Tablet.DR PO SCH (07:35)
[2018-08-22] MEDS: docusate sod 100mg capsule PO SCH ×2 (07:35→20:09)
[2018-08-22] MEDS: atorvastatin 10mg tablet PO SCH (07:35)
[2018-08-22] MEDS: methylPREDNISolone sod succ 125mg/2ml vial IV SCH ×2 (07:35→20:09)
[2018-08-22] MEDS: aspirin 81mg tab.chew PO SCH (07:35)
[2018-08-22] MEDS: insulin Lispro (HumaLOG) vial - multi-dose SQ SCH ×3 (08:29→18:39)
[2018-08-22] MEDS: HYDROcodone/acetaminophen 10/325mg tab PO PRN ×2 (10:18→14:40)
[2018-08-22] MEDS: diphenhydrAMINE 25mg capsule PO PRN (20:09)
[2018-08-22] MEDS: dextrose 50%-water 50ml dispensing syringe IV PRN ×2 (20:59→22:05)
[2018-08-22] MEDS: insulin glargine (Lantus) pen - multi-dose SQ SCH (21:00)
[2018-08-23] VITALS (11 sets, daily range): BP systolic 87–166; BP diastolic 53–83
[2018-08-23] MEDS: HYDROcodone/acetaminophen 10/325mg tab PO PRN ×2 (05:51→09:06)
[2018-08-23 06:40] LABS: BASOPHILS % (AUTO) 0.2 % (0-1); EOSINOPHILS % (AUTO) 0.1 % (0-6); HEMATOCRIT 44.2 % (42.0-52.0); HEMOGLOBIN 14.1 g/dl (14.0-17.9); LYMPHOCYTES # (AUTO) 1.8 X10'3 (1.1-4.8); LYMPHOCYTES % (AUTO) 15.1 % (21-51); MEAN CORPUSCULAR HEMOGLOBIN 26.7 PG (27.0-31.0); MEAN CORPUSCULAR HGB CONC 31.9 % (33.0-36.5); MEAN CORPUSCULAR VOLUME 83.7 FL (78-98); MEAN PLATELET VOLUME 11.9 FL (7.4-10.4); MONOCYTES % (AUTO) 8.7 % (2-12); NEUTROPHILS # (AUTO) 9.2 X10'3 (1.8-7.7); NEUTROPHILS % (AUTO) 75.9 % (42-75); PLATELET COUNT 138 X10'3 (140-440); RED BLOOD COUNT 5.29 X10'6 (4.70-6.10); RED CELL DISTRIBUTION WIDTH 18.4 % (11.5-14.5); WHITE BLOOD COUNT 12.1 X10'3 (4.5-11.0)
[2018-08-23 06:49] LABS: ALANINE AMINOTRANSFERASE 31 U/L (12-78); ALBUMIN 3.1 G/DL (3.4-5.0); ALBUMIN/GLOBULIN RATIO 0.8 (1.1-1.5); ALKALINE PHOSPHATASE 240 IU/L (46-116); ANION GAP 10 (8-16); ASPARTATE AMINO TRANSFERASE 29 U/L (10-37); BILIRUBIN,TOTAL 0.9 MG/DL (0.1-1.0); BLOOD UREA NITROGEN 39 MG/DL (7-18); BUN/CREATININE RATIO 30.7 (5.4-32.0); CALCIUM 8.4 MG/DL (8.5-10.1); CHLORIDE 102 MMOL/L (99-107); CREATININE 1.27 MG/DL (0.60-1.10); GLUCOSE 75 MG/DL (70-104); SODIUM 139 MMOL/L (135-145); TOTAL CARBON DIOXIDE 27.3 MMOL/L (24-32); TOTAL PROTEIN 6.9 G/DL (6.4-8.2); eGFR 55 ML/MIN
[2018-08-23 07:46] LABS: LARGE PLATELETS FEW; PLATELET ESTIMATE DECREASED
[2018-08-23] MEDS: aspirin 81mg tab.chew PO SCH (07:47)
[2018-08-23] MEDS: atorvastatin 10mg tablet PO SCH (07:47)
[2018-08-23] MEDS: carVEDilol 3.125mg tablet PO SCH (07:48)
[2018-08-23] MEDS: gemfibrozil 600mg tablet PO SCH (07:48)
[2018-08-23] MEDS: methylPREDNISolone sod succ 125mg/2ml vial IV SCH (07:48)
[2018-08-23] MEDS: gabapentin 300mg capsule PO SCH (07:48)
[2018-08-23] MEDS: docusate sod 100mg capsule PO SCH (07:48)
[2018-08-23] MEDS: pantoprazole 40mg Tablet.DR PO SCH (07:48)
[2018-08-23] MEDS ORDERED: atropine 0.1mg/ml 10ml syringe ONE (10:00)
[2018-08-23] MEDS ORDERED: epiNEPHrine 0.1mg/ml 10ml syringe ONE (10:00)
[2018-08-23] MEDS ORDERED: DOPamine 400mg/D5W 250ml 250 ML IV ONE (10:36)
[2018-08-24 05:48] LABS: % FREE PSA >3.7 % (.); CARBOHYDRATE ANTIGEN 19-9 12 U/mL (0-35); CARCINOEMBRYONIC ANTIGEN 4.2 ng/mL (0.0-4.7); PSA, FREE >50.00 ng/mL
== END 2018-08-23 15:51 | disposition expired | DRG 286 ==
LOC: ER 23:48 → ED HOLD 08-19 01:41 → EDBEDREQ 08-19 02:27 → ORTHO 4S 08-19 03:40 → CICU 2S 08-19 16:04
PROVIDERS: ADMIT Family Medicine; ATTEND Internal Medicine Critical Care Medicine
PROC: B32T1ZZ Computerized Tomography (CT Scan) of Left Pulmonary Artery using Low Osmolar Contrast (ICD-10-PCS; 2018-08-19)
PROC: B3201ZZ Computerized Tomography (CT Scan) of Thoracic Aorta using Low Osmolar Contrast (ICD-10-PCS; 2018-08-19)
PROC: B32S1ZZ Computerized Tomography (CT Scan) of Right Pulmonary Artery using Low Osmolar Contrast (ICD-10-PCS; 2018-08-19)
PROC: CB121ZZ Planar Nuclear Medicine Imaging of Lungs and Bronchi using Technetium 99m (Tc-99m) (ICD-10-PCS; 2018-08-21)
PROC: 4A023N8 Measurement of Cardiac Sampling and Pressure, Bilateral, Percutaneous Approach (ICD-10-PCS; 2018-08-21)
PROC: B2111ZZ Fluoroscopy of Multiple Coronary Arteries using Low Osmolar Contrast (ICD-10-PCS; 2018-08-21)
PROC: B2151ZZ Fluoroscopy of Left Heart using Low Osmolar Contrast (ICD-10-PCS; 2018-08-21)
PROC: 5A12012 Performance of Cardiac Output, Single, Manual (ICD-10-PCS; principal; 2018-08-23)
PROC: 4A02XFZ Measurement of Cardiac Rhythm, External Approach (ICD-10-PCS; 2018-08-23)
PROC: 4A03XB1 Measurement of Arterial Pressure, Peripheral, External Approach (ICD-10-PCS; 2018-08-23)
DX: I27.21 Secondary pulmonary arterial hypertension (principal); J96.01 Acute respiratory failure with hypoxia; I50.22 Chronic systolic (congestive) heart failure; N17.9 Acute kidney failure, unspecified; I13.0 Hypertensive heart and chronic kidney disease with heart failure and stage 1 through stage 4 chronic kidney disease, or unspecified chronic kidney disease; J44.1 Chronic obstructive pulmonary disease with (acute) exacerbation; C34.90 Malignant neoplasm of unspecified part of unspecified bronchus or lung; C79.51 Secondary malignant neoplasm of bone; K51.90 Ulcerative colitis, unspecified, without complications; R55 Syncope and collapse; N18.9 Chronic kidney disease, unspecified; E11.22 Type 2 diabetes mellitus with diabetic chronic kidney disease; E11.42 Type 2 diabetes mellitus with diabetic polyneuropathy; E11.65 Type 2 diabetes mellitus with hyperglycemia; I25.10 Atherosclerotic heart disease of native coronary artery without angina pectoris; G89.29 Other chronic pain; E78.5 Hyperlipidemia, unspecified; E78.00 Pure hypercholesterolemia, unspecified; K21.9 Gastro-esophageal reflux disease without esophagitis; I46.9 Cardiac arrest, cause unspecified; Z90.49 Acquired absence of other specified parts of digestive tract; Z95.5 Presence of coronary angioplasty implant and graft; Z88.0 Allergy status to penicillin; Z79.899 Other long term (current) drug therapy; Z79.82 Long term (current) use of aspirin; Z86.73 Personal history of transient ischemic attack (TIA), and cerebral infarction without residual deficits; Z86.711 Personal history of pulmonary embolism; Z87.891 Personal history of nicotine dependence; Z87.01 Personal history of pneumonia (recurrent); Z82.3 Family history of stroke; Z82.5 Family history of asthma and other chronic lower respiratory diseases
CPT/HCPCS: 36415; 70450; 71045; 71275; 78582; 80053; 80061; 81001; 82378; 82948; 83605; 83735; 83880; 84100; 84153; 84154; 84443; 84484; 85025; 85379; 85610; 85730; 86301; 87070; 93005; 93308; 93460; 93660; 93880; 93970; 94667; 94760; 96372; 97162; 97530; 99152; 99153; 99285; A4620; A6257; A9539; A9540; C1769; G0378; J0171; J0461; J1170; J1265; J1644; J1650; J1815; J1956; J2250; J2270; J2405; J2930; J3010; J3490; J7030; Q0163; Q9967